=== PATIENT | female | born 1940 | race Caucasian/White ===

== ENCOUNTER 2017-09-27 18:00 | Outpatient (CLI) | payer MEDICARE, OTHER ==
[2013-02-08 13:12] VITALS: BP 111/74
[2017-09-27 18:48] LABS: eGFR (African) > 60; eGFR (Non-African) > 60
== END 2017-09-27 18:30 ==
LOC: LAB 18:00
PROVIDERS: ATTEND Family Medicine
DX: I10 Essential (primary) hypertension (principal); I48.91 Unspecified atrial fibrillation; Z79.01 Long term (current) use of anticoagulants; E78.00 Pure hypercholesterolemia, unspecified; R73.9 Hyperglycemia, unspecified
CPT/HCPCS: 80053; 80061; 83036; 85610

== ENCOUNTER 2017-10-05 12:50 | Outpatient (CLI) | payer MEDICARE, OTHER ==
[2013-02-08 13:12] VITALS: BP 111/74
--- NOTE | 2017-10-05 18:28 | Diagnostic Imaging Report ---
THAD MACKENZIE [facility] [id number] [facility].[address] [id number] Report Submission Date: Oct 05, 2017 6:12:10 PM CDT Patient Study Name: DAYANA SIERRA Date: Oct 05, 2017 1:07:42 PM CDT Modality Type: US Gender: F Description: : 44 Institution: [facility] Physician: THAD MACKENZIE Carotid ultrasound Clinical history: Carotid bruit Technique ultrasound and color Doppler was performed of the carotid arteries. Findings: there is soft plaque in the right common carotid artery. Some calcifications and soft plaque are present in the right carotid bulb. The right internal and external carotid arteries appear widely patent on color Doppler. Right vertebral artery is patent. the left common carotid artery show soft plaque. There is calcification of the left carotid bulb. The left internal and external carotid arteries are widely patent. Left vertebral artery blood flow is antegrade Left internal carotid artery peak flow velocity is 88 cm per second. Right internal carotid artery peak flow velocity is 38 cm per second Impression: 16-49% bilateral internal carotid artery stenosis with the degree of stenosis at the end of this range Antegrade vertebral artery blood flow Electronically signed on Oct 05, 2017 6:12:10 PM CDT by: Luis KRISHNA
== END 2017-10-05 12:52 ==
LOC: RAD 12:50
PROVIDERS: ATTEND Family Medicine
DX: I73.9 Peripheral vascular disease, unspecified (principal); R09.89 Other specified symptoms and signs involving the circulatory and respiratory systems
CPT/HCPCS: 93880

== ENCOUNTER 2018-07-27 13:34 | Outpatient (CLI) | payer MEDICARE, OTHER ==
[2013-02-08 13:12] VITALS: BP 111/74
== END 2018-07-27 13:36 ==
LOC: LABRHC 13:34
PROVIDERS: ATTEND Family Medicine
DX: I10 Essential (primary) hypertension (principal); R73.9 Hyperglycemia, unspecified; I48.91 Unspecified atrial fibrillation; Z79.01 Long term (current) use of anticoagulants
CPT/HCPCS: 36415; 80053; 80061; 83036; 85610